=== PATIENT | female | born 1965 | race Caucasian/White ===

== ENCOUNTER 2017-12-11 12:39 | Outpatient (RCR) | payer BC ==
[~2017-12-11 12:39] MED LIST: BAC10 PO; BACDS PO; BACL-51 PO; BUME0.5T PO; BUME2TAB PO; CIP500 PO; CLON-303 PO; CLOZ25TA PO; COREDS LEFT EAR; FLUO40CA76 PO; FUR40 PO; GLAT20KI3 SQ; HYDR-6016 PO; LOM PO; MED150I IM; METH2.5T43 PO; METH5TAB85 PO; METHY10 PO; NAT300I; NEUROTIN; OXYXL5 PO; POTA20PA10 PO; PRE20 PO; RIT100I; SPIR25TA78 PO; TIZA-1 PO; TOLT4CAP13 PO; TRA50 PO; [UNRECOGNIZED DRUG - CODE] PO
[2017-12-11] MEDS ORDERED: DEXTROSE 5%(*) 100 ML BAG 100 ML IVPB PRN (14:00)
[2017-12-11] MEDS ORDERED: LIDOCAINE/SOD BICARB 8.4% SYR ID PRN (14:00)
[2017-12-11] MEDS: NS(*) 0.9% 100 ML BAG 100 ML IVPB PRN (14:20)
[2017-12-11] MEDS: NS 0.9% IV PRN (14:20)
[2017-12-11] MEDS: METHYLPREDNIS SUC IV PRN (14:20)
[2017-12-11 14:21] VITALS: BP 122/104
[2017-12-12] MEDS: METHYLPREDNIS SUC IV PRN (09:11)
[2017-12-12] MEDS: NS 0.9% IV PRN (09:11)
[2017-12-12 09:15] VITALS: BP 138/102
[2017-12-12] MEDS: NS(*) 0.9% 100 ML BAG 100 ML IVPB PRN (09:20)
[2017-12-13] MEDS: METHYLPREDNIS SUC IV PRN (09:06)
[2017-12-13] MEDS: NS 0.9% IV PRN (09:06)
[2017-12-13 09:09] VITALS: BP 144/102
[2017-12-13] MEDS: NS(*) 0.9% 100 ML BAG 100 ML IVPB PRN (10:06)
== END 2018-03-11 ==
LOC: SPU 12:39
PROVIDERS: ATTEND Psychiatry & Neurology Neurology
DX: G35 Multiple sclerosis (principal)
CPT/HCPCS: 96365; J2930; J7040; J7050

== ENCOUNTER 2017-12-18 11:30 | Outpatient (RCR) | payer BC ==
--- NOTE | 2017-12-18 13:09 | RADIOLOGY IMAGING REPORT ---
FACILITY: [facility] PATIENT NAME: Cathy Mckeon : 1965 MR: [id number] V: [id number] EXAM DATE: ORDERING PHYSICIAN: DARRIN AMOR TECHNOLOGIST: Location: [facility] Patient: Cathy Mckeon : 1965 Visit/Account:[id number] Date of Sevice: 12/18/2017 CHEST PA AND LAT Indication: . Edema, cough Comparison: None Findings: Lungs: Clear. Mediastinum/pulmonary vasculature: Heart size and pulmonary vasculature are normal. Bones/soft tissues: Normal. IMPRESSION: Clear lungs. Report Dictated By: Austin Booth at 12/18/2017 1:05 PM Report E-Signed By: Austin Booth at 12/18/2017 1:05 PM WSN:[id number]
--- NOTE | 2017-12-31 22:42 | RADIOLOGY IMAGING REPORT ---
FACILITY: [facility] PATIENT NAME: MADDISON KLEIN : [id number] MR: [id number] V: [id number] EXAM DATE: ORDERING PHYSICIAN: DARRIN AMOR TECHNOLOGIST: Arlin Castellanos EXAMINATION:TWO-DIMENSIONAL ECHOCARDIOGRAPH REASON:PEDAL EDEMA/UNCONTROLLED BLOOD PRESSURE 2D Measurements (normal values in centimeters) LV endLV endRV endVent.LV PostAorticLeftPercent DiastolicSystolicDiastolicSeptumWallRootAtriumShortening (3.5-5.7)(0.9-2.6)(0.6-1.1)(0.6-1.1)(2.0-3.7)(1.9-4.0)(25-35%) [id number]% STROKE VOLUME: 55ml ESTIMATED EJECTION FRACTION:57% PARASTERNAL LONG AXIS: Overall left ventricular systolic function appears to be normal. Chamber sizes also appear to be normal. The aortic valve & mitral valve both appear to open normally. Color examination of the valves in this view was unremarkable except for a trace of mitral insufficiency present. No wall motion abnormalities were noted. No significant left ventricular thickening was noted. PARASTERNAL SHORT AXIS: Overall left ventricular systolic function again appears to be normal. No wall motion abnormalities are noted. The chamber sizes are normal. Aortic valve is trileaflet in configuration & appears to open normally. Color examination of the aortic valve was unremarkable. APICAL FOUR AND TWO CHAMBER: Normal left ventricular ejection fraction. Normal chamber sizes. Mitral valve & tricuspid valve both appear to open normally. No wall motion abnormalities are noted. No significant left ventricular thickening was noted. Color examination of the tricuspid valve reveals a mild amount of tricuspid insufficiency. Aortic valve area & mitral valve area both measure within normal ranges at 3.0 & 4.5cm2 respectively. The left atrial volumes & right atrial volumes measure within normal ranges at 19 & 14ml/m2. The tricuspid regurgitation Vmax measured 2.92m/sec. Estimated right atrial pressure is 3mm Hg. Mild amount of mitral & tricuspid insufficiency is noted. SUBCOSTAL VIEW: No pericardial effusion was noted. No atrioseptal or ventriculoseptal defects were appreciated. Doppler examination of the mitral valve in diastole is normal . OVERALL IMPRESSION: 1. Normal left ventricular systolic & diastolic function. There are normal chamber sizes. 2. A mild amount of mitral & tricuspid insufficiency with normal right ventricular systolic pressures. 3. A trileaflet aortic valve with no abnormalities. 4. No left ventricular thickening was noted. Dictated by: Johanna Ewing M.D. on 12/30/2017 at 21:37 Transcribed by: RASHAWN on 12/31/2017 at 13:21 Approved by: Johanna Ewing M.D. on 12/31/2017 at 22:39 [facility]
== END 2017-12-30 18:00 | disposition home or self-care (01) ==
LOC: US 11:30
PROVIDERS: ATTEND Family Medicine
DX: R60.9 Edema, unspecified (principal); I10 Essential (primary) hypertension; I34.0 Nonrheumatic mitral (valve) insufficiency; I36.1 Nonrheumatic tricuspid (valve) insufficiency
CPT/HCPCS: 36415; 71046; 81001; 82040; 82247; 82310; 82374; 82435; 82565; 82947; 84075; 84132; 84155; 84295; 84450; 84460; 84520; 85027; 93306

== ENCOUNTER → 2018-01-13 | Outpatient (CLI) | payer BC ==
[2018-01-13 13:08] LABS: LDL CHOLESTEROL 108 mg/dl
== END ==
LOC: LAB 12:04
PROVIDERS: ATTEND Family Medicine
DX: G35 Multiple sclerosis (principal); R60.0 Localized edema; E78.5 Hyperlipidemia, unspecified; R26.9 Unspecified abnormalities of gait and mobility
CPT/HCPCS: 36415; 82040; 82247; 82310; 82374; 82435; 82465; 82565; 82947; 83718; 84075; 84132; 84155; 84295; 84443; 84450; 84460; 84478; 84520; 85027; 85651; 86140

== ENCOUNTER → 2018-01-27 | Outpatient (CLI) | payer BC ==
[~2018-01-27] MED LIST changes: +GADOBENATE 529MG/1ML 15ML VIAL IVP ONE
--- NOTE | 2018-01-27 15:47 | RADIOLOGY IMAGING REPORT ---
FACILITY: [facility] PATIENT NAME: Cathy Mckeon : 1965 MR: [id number] V: [id number] EXAM DATE: ORDERING PHYSICIAN: YUAN ROBLERO TECHNOLOGIST: Location: [facility] Patient: Cathy Mckeon : 1965 Visit/Account:[id number] Date of Sevice: 01/27/2018 BRAIN W W/O CONTRAST Comparisons: Brain MRI with and without contrast dated June 16, 2017 Additional pertinent history: Multiple sclerosis TECHNIQUE: Multiplanar, multisequence brain MRI was performed with and without gadolinium contrast. CONTRAST: 15 ml of MultiHance. FINDINGS: Sagittal midline structures and craniocervical junction: Negative. Midline shift: None. Ventricles: Negative. Brain parenchyma: Diffusion weighted imaging: Negative. Gradient sequence: Negative. T2 weighted FLAIR images: Continued patchy and confluent regions of abnormal increased T2 signal wi thin the periventricular and subcortical white matter stable in appearance from previous exam compati ble patient's own history of multiple sclerosis. No new lesions from previous exam. Extra-axial spaces: Negative. Dural venous sinuses and major arterial flow voids: Negative. Intracranial enhancement: Negative.. Mastoid air cells and paranasal sinuses: Negative. Surrounding soft tissues and orbits: Negative. Impression: 1. Stable T2 hyperintensities within the periventricular and subcortical white matter compatible yaquelin ent's known history of multiple sclerosis. 2. No new foci of increased T2 signal or pathologic enhancement to suggest active disease. Report Dictated By: Serg Gaona MD at 01/27/2018 3:38 PM Report E-Signed By: Serg Gaona MD at 01/27/2018 3:42 PM WSN:[id number]
== END ==
LOC: MRI 01:53
PROVIDERS: ATTEND Psychiatry & Neurology Neurology
DX: G35 Multiple sclerosis (principal)
CPT/HCPCS: 70553; A9577

== ENCOUNTER 2018-03-12 07:38 | Outpatient (RCR) | payer BC ==
[~2018-03-12 07:38] MED LIST changes: -GADOBENATE 529MG/1ML 15ML VIAL IVP ONE
[2018-03-12] MEDS ORDERED: NS(*) 0.9% 100 ML BAG 100 ML IVPB PRN (10:00)
[2018-03-12] MEDS ORDERED: LIDOCAINE/SOD BICARB 8.4% SYR ID PRN (10:00)
[2018-03-12] MEDS ORDERED: DEXTROSE 5%(*) 100 ML BAG 100 ML IVPB PRN (10:00)
[2018-03-12] MEDS ORDERED: diphenhydrAMINE 25 MG CAP PO PRN (10:35)
[2018-03-12] MEDS ORDERED: methylPREDNIS SUCC 125 MG/2ML IVP PRN (10:35)
[2018-03-12] MEDS ORDERED: ACETAMINOPHEN 325 MG TAB PO PRN (10:35)
[2018-03-12 10:41] LABS: PLATELET COUNT, AUTOMATED 219 K/uL (150-450)
[2018-03-12] MEDS ORDERED: OCRELIZUMAB 300 MG/10 ML SDV 600 MG in NS(*) 0.9% 500 ML BAG 500 ML IVPB ONE (11:00)
[2018-03-12 12:08] VITALS: BP 114/70
== END 2018-04-07 13:23 | disposition home or self-care (01) ==
LOC: SPU 07:38
PROVIDERS: ATTEND Psychiatry & Neurology Neurology
DX: G35 Multiple sclerosis (principal)
CPT/HCPCS: 85025; 96365; 96366; 96375; J2350; J2930; J7040; Q0163

== ENCOUNTER 2018-08-27 08:30 | Outpatient (RCR) | payer BC ==
[~2018-08-27 08:30] MED LIST changes: +DEXTROSE 5%(*) 100 ML BAG 100 ML IVPB PRN; +LIDOCAINE/SOD BICARB 8.4% SYR ID PRN; +NS(*) 0.9% 100 ML BAG 100 ML IVPB PRN
[2018-08-27 08:40] VITALS: BP 115/96
[2018-08-27 09:10] LABS: PLATELET COUNT, AUTOMATED 213 K/uL (150-450)
[2018-08-27] MEDS ORDERED: methylPREDNIS SUCC 125 MG/2ML IVP PRN (09:10)
[2018-08-27] MEDS ORDERED: ACETAMINOPHEN 500 MG TAB PO PRN (09:10)
[2018-08-27] MEDS ORDERED: diphenhydrAMINE 25 MG CAP PO PRN (09:10)
[2018-08-27] MEDS ORDERED: OCRELIZUMAB 300 MG/10 ML SDV 600 MG in NS(*) 0.9% 500 ML BAG 500 ML IVPB ONE (09:45)
== END 2018-10-06 11:03 | disposition home or self-care (01) ==
LOC: SPU 08:30
PROVIDERS: ATTEND Psychiatry & Neurology Neurology
DX: G35 Multiple sclerosis (principal)
CPT/HCPCS: 85025; 96365; 96366; 96375; J2350; J2930; J7040; J7050; Q0163; 82040; 82247; 82310; 82374; 82435; 82565; 82947; 84075; 84132; 84155; 84295; 84450; 84460; 84520

== ENCOUNTER 2019-03-04 08:23 | Outpatient (RCR) | payer BC ==
[2018-12-10 11:16] VITALS: BP 125/84
[2018-12-10] MEDS: methylPREDNIS SUC* 1000 MG/8ML 1,000 MG in NS(*) 0.9% 250 ML BAG 250 ML IV PRN (12:12)
[2018-12-10] MEDS: LIDOCAINE/SOD BICARB 8.4% SYR ID PRN (12:14)
[2018-12-10] MEDS: NS(*) 0.9% 100 ML BAG 100 ML IVPB PRN (12:15)
[2018-12-10 13:25] VITALS: BP 114/65
[2018-12-11] MEDS: NS(*) 0.9% 100 ML BAG 100 ML IVPB PRN (10:34)
[2018-12-11] MEDS: methylPREDNIS SUC* 1000 MG/8ML 1,000 MG in NS(*) 0.9% 250 ML BAG 250 ML IV PRN (10:34)
[2018-12-11] MEDS: LIDOCAINE/SOD BICARB 8.4% SYR ID PRN (10:34)
[2018-12-11 11:00] VITALS: BP 126/83
[2018-12-11 11:36] VITALS: BP 122/87
[2018-12-12] MEDS: LIDOCAINE/SOD BICARB 8.4% SYR ID PRN (09:38)
[2018-12-12] MEDS: NS(*) 0.9% 100 ML BAG 100 ML IVPB PRN (09:39)
[2018-12-12] MEDS: methylPREDNIS SUC* 1000 MG/8ML 1,000 MG in NS(*) 0.9% 250 ML BAG 250 ML IV PRN (10:18)
[2018-12-12 10:27] VITALS: BP 123/89
[2018-12-12 11:19] VITALS: BP 116/90
[2019-02-18] MEDS: LIDOCAINE/SOD BICARB 8.4% SYR ID PRN (13:23)
[2019-02-18] MEDS: NS(*) 0.9% 100 ML BAG 100 ML IVPB PRN (13:23)
[2019-02-18 13:25] LABS: PLATELET COUNT, AUTOMATED 244 K/uL (150-450)
[2019-02-18 14:14] VITALS: BP 132/92
[2019-02-18 17:23] VITALS: BP 132/91
[2019-03-02 08:53] VITALS: BP 129/99
[2019-03-02] MEDS: LIDOCAINE/SOD BICARB 8.4% SYR ID PRN (09:15)
[2019-03-02] MEDS: NS(*) 0.9% 100 ML BAG 100 ML IVPB PRN (09:16)
[2019-03-02] MEDS: methylPREDNIS SUC* 1000 MG/8ML 1,000 MG in NS(*) 0.9% 250 ML BAG 250 ML IV PRN (09:41)
[2019-03-02 11:04] VITALS: BP 127/94
[2019-03-03 09:10] VITALS: BP 124/93
[2019-03-03] MEDS: methylPREDNIS SUC* 1000 MG/8ML 1,000 MG in NS(*) 0.9% 250 ML BAG 250 ML IV PRN (09:28)
[2019-03-03] MEDS: LIDOCAINE/SOD BICARB 8.4% SYR ID PRN (09:28)
[2019-03-03] MEDS: NS(*) 0.9% 100 ML BAG 100 ML IVPB PRN (09:29)
[2019-03-03 10:55] VITALS: BP 129/99
[~2019-03-04 08:23] MED LIST changes: +ACETAMINOPHEN 500 MG TAB PO PRN; -LIDOCAINE/SOD BICARB 8.4% SYR ID PRN; +LORATADINE 10 MG TAB PO PRN; -NS(*) 0.9% 100 ML BAG 100 ML IVPB PRN; +OCRELIZUMAB 300 MG/10 ML SDV 600 MG in NS(*) 0.9% 500 ML BAG 500 ML IVPB ONE; +diphenhydrAMINE 50 MG/ML VIAL IVP PRN; +methylPREDNIS SUCC 125 MG/2ML IVP PRN
[2019-03-04 08:30] VITALS: BP 145/102
[2019-03-04] MEDS: LIDOCAINE/SOD BICARB 8.4% SYR ID PRN (09:18)
[2019-03-04] MEDS: methylPREDNIS SUC* 1000 MG/8ML 1,000 MG in NS(*) 0.9% 250 ML BAG 250 ML IV PRN (09:18)
[2019-03-04] MEDS: NS(*) 0.9% 100 ML BAG 100 ML IVPB PRN (09:19)
[2019-03-04 10:52] VITALS: BP 143/102
== END 2019-03-09 ==
LOC: SPU 08:23
PROVIDERS: ATTEND Psychiatry & Neurology Neurology
DX: G35 Multiple sclerosis (principal)
CPT/HCPCS: 81001; 85025; 87088; 88184; 88185; 96365; 96366; 96375; J1200; J2350; J2930; J7040; J7050; 82040; 82247; 82310; 82374; 82435; 82565; 82947; 84075; 84132; 84155; 84295; 84450; 84460; 84520